=== PATIENT | male | born 1960 | race Caucasian/White ===

== ENCOUNTER 2019-03-21 09:02 | Inpatient (IN) | payer MEDICAID ==
[2019-03-20 11:51] LABS: BASOPHILS # (AUTO) 0.05 x10^3/uL (0-0.1); BASOPHILS % (AUTO) 1 % (0-1); EOSINOPHILS # (AUTO) 0.07 x10^3/uL (0-0.4); EOSINOPHILS % (AUTO) 1 % (1-7); LYMPHOCYTES # (AUTO) 1.69 x10^3/uL (1-3.4); LYMPHOCYTES % (AUTO) 22 % (22-44); MD NO; MEAN CORPUSCULAR HEMOGLOBIN 33.3 pg (27.5-34.5); MEAN CORPUSCULAR HGB CONC 33.5 g/dL (33.2-36.2); MEAN CORPUSCULAR VOLUME 99.4 fL (81-97); MEAN PLATELET VOLUME 8.3 fL (7.4-10.4); MONOCYTES # (AUTO) 0.33 x10^3/uL (0.2-0.8); MONOCYTES % (AUTO) 4 % (2-9); NEUTROPHILS # (AUTO) 5.55 x10^3/uL (1.8-6.8); NEUTROPHILS % (AUTO) 72 % (42-75); PLATELET COUNT 245 x10^3/uL (130-400); RED BLOOD COUNT 4.74 x10^6/uL (4.38-5.82); RED CELL DISTRIBUTION WIDTH 14.3 % (9.4-14.8)
[2019-03-20 12:01] LABS: INTERNATIONAL NORMALIZED RATIO 1.02 (0.93-1.1); PROTHROMBIN TIME 10.7 Seconds (9.6-11.5)
[2019-03-20 12:03] LABS: ALBUMIN 3.9 g/dL (3.4-5.0); ANION GAP 5 mmol/L (5-15); CALCIUM 8.9 mg/dL (8.5-10.1); CHLORIDE 113 mmol/L (98-107)
[2019-03-20 12:07] LABS: ALANINE AMINOTRANSFERASE 24 U/L (12-78); ALKALINE PHOSPHATASE 82 U/L (45-117); BILIRUBIN,TOTAL 0.3 mg/dL (0.2-1.0); CREATININE 0.79 mg/dL (0.7-1.3); TOTAL PROTEIN 6.9 g/dL (6.4-8.2)
[2019-03-20 12:30] LABS: HEMOGLOBIN A1C 5.1 % (4.2-6.3)
[~2019-03-21] VITALS: Ht 182.9 cm; Wt 81.0 kg
[~2019-03-21 09:02] MED LIST: EPINEPHRINE 1 MG/ML, 1ML ONE; KETOROLAC 60 MG/2 ML ONE; MULT1TAB60 PO; ROPIvacaine/PF 0.5%, 30 ML ONE; SODIUM CHLORIDE 0.9% 50 ML ONE; TRANEXAMIC ACID 100 MG/ML, 10ML ONE; VANCOMYCIN 1,000 MG ONE
[2019-03-21] MEDS ORDERED: MIDAZOLAM 1 MG/ML, 2ML ONE (13:36)
[2019-03-21] MEDS ORDERED: FENTANYL PF 250 MCG/5ML ONE (13:36)
[2019-03-21 14:09] VITALS: BP 126/82
[2019-03-21] MEDS ORDERED: LACTATED RINGERS 1,000 ML IV SCH (14:15)
[2019-03-21] MEDS ORDERED: ACETAMINOPHEN 500 MG TABLET PO ONE (14:30)
[2019-03-21] MEDS ORDERED: GABAPENTIN 300 MG CAPSULE PO ONE (14:30)
[2019-03-21] MEDS ORDERED: GABAPENTIN 300 MG CAPSULE ONE (14:35)
[2019-03-21] MEDS ORDERED: ACETAMINOPHEN 500 MG TABLET ONE (14:35)
[2019-03-21] MEDS ORDERED: CEFAZOLIN 1,000 MG ONE (14:45)
[2019-03-21] MEDS ORDERED: ONDANSETRON 2MG/ML, 2ML ONE (15:04)
[2019-03-21] MEDS ORDERED: FENTANYL PF 100 MCG/2ML ONE ×3 (15:05→15:50)
[2019-03-21] MEDS ORDERED: SUCCINYLCHOLINE 20 MG/ML, 10ML ONE (15:18)
[2019-03-21] MEDS ORDERED: PROPOFOL 10 MG/ML, 20ML ONE (15:18)
[2019-03-21] MEDS ORDERED: LIDOCAINE-MPF 2% ,5ML ONE (15:18)
[2019-03-21] MEDS ORDERED: DEXAMETHASONE 4 MG/ML, 1ML ONE ×2 (15:22)
[2019-03-21] MEDS ORDERED: MEPERIDINE/PF 25MG/ML,1ML IVPush PRN (15:30)
[2019-03-21] MEDS ORDERED: ONDANSETRON 2MG/ML, 2ML IV PRN ×2 (15:30→16:00)
[2019-03-21] MEDS ORDERED: EPHEDRINE 50 MG/ML, 1ML IVPush PRN (15:30)
[2019-03-21] MEDS ORDERED: hydrALAzine 20 MG/ML, 1ML IV PRN (15:30)
[2019-03-21] MEDS ORDERED: PROMETHAZINE 25 MG/ML, 1ML IV PRN (15:30)
[2019-03-21] MEDS ORDERED: OXYcodone 5 MG/5 ML ORAL.SOL UDC PO PRN ×2 (15:30→16:00)
[2019-03-21] MEDS ORDERED: HYDROmorphone 2 MG/ML, 1ML IVPush PRN (15:30)
[2019-03-21] MEDS ORDERED: LABETALOL 5MG/ML, 20ML IV PRN (15:30)
[2019-03-21] MEDS ORDERED: HYDROmorphone 1 MG/ML, 1ML VIAL ONE (15:50)
[2019-03-21] MEDS ORDERED: OXYcodone 5 MG/5 ML ORAL.SOL UDC ONE (15:50)
[2019-03-21] MEDS ORDERED: ACETAMINOPHEN 650 MG/20.3 ML UDC PO PRN (16:00)
[2019-03-21] MEDS ORDERED: BISACODYL 10 MG SUPP PR PRN (16:00)
[2019-03-21] MEDS ORDERED: ONDANSETRON 4 MG TABLET PO PRN (16:00)
[2019-03-21] MEDS ORDERED: MAGNESIUM HYDROXIDE 8%, 30ML UDC PO PRN (16:00)
[2019-03-21] MEDS ORDERED: SCOPOLAMINE PATCH, 1.5MG PATCH.TD72 TD ONE (16:00)
[2019-03-21] MEDS ORDERED: SENNA/DOCUSATE TABLET PO PRN (16:00)
[2019-03-21] MEDS ORDERED: DIPHENHYDRAMINE 50 MG CAPSULE PO PRN (16:00)
[2019-03-21] MEDS ORDERED: ZOLPIDEM 5MG TABLET PO PRN (16:00)
[2019-03-21] MEDS ORDERED: HYDROcodone/APAP 5/325 TABLET PO PRN (16:00)
[2019-03-21] MEDS: FENTANYL PF 100 MCG/2ML IV PRN ×2 (16:01→16:11)
[2019-03-21] MEDS: HYDROmorphone 2 MG/ML, 1ML IVPush PRN ×2 (16:01→16:15)
[2019-03-21] MEDS ORDERED: PROMETHAZINE 25 MG/ML, 1ML ONE (16:15)
[2019-03-21] MEDS: NS + 20MEQ KCL 1,000 ML IV SCH (18:20)
[2019-03-21] MEDS: ASPIRIN 81 MG TABLET EC PO SCH (18:20)
[2019-03-21 19:30] VITALS: BP 115/74
[2019-03-21] MEDS: DOCUSATE 100 MG CAPSULE PO SCH (22:04)
[2019-03-21 22:20] VITALS: BP 108/76
[2019-03-21] MEDS: CEFAZOLIN PMX 2GM/50ML 50 ML IVPB SCH (22:38)
[2019-03-22] MEDS: OXYcodone IR 5MG TABLET PO PRN ×2 (05:10→09:26)
[2019-03-22] MEDS ORDERED: DEXAMETHASONE 4 MG/ML, 1ML IVPush SCH (06:00)
[2019-03-22] MEDS: ASPIRIN 81 MG TABLET EC PO SCH (06:30)
[2019-03-22] MEDS: NS + 20MEQ KCL 1,000 ML IV SCH (06:30)
[2019-03-22] MEDS: CEFAZOLIN PMX 2GM/50ML 50 ML IVPB SCH (06:31)
[2019-03-22 07:12] VITALS: BP 131/86
[2019-03-22] MEDS ORDERED: OXYC5TAB3 PO (08:25)
[2019-03-22] MEDS ORDERED: TRAM50TA2 PO (08:26)
[2019-03-22] MEDS ORDERED: MELO7.5T31 PO (08:27)
[2019-03-22] MEDS: DOCUSATE 100 MG CAPSULE PO SCH (09:26)
== END 2019-03-22 10:58 | disposition home or self-care (01) | DRG 470 ==
LOC: ORIP 14:43 → 4NE 16:51 → DCLOUNGE 03-22 10:39
PROVIDERS: ADMIT Orthopaedic Surgery; ATTEND Orthopaedic Surgery
PROC: 0SRB06A Replacement of Left Hip Joint with Oxidized Zirconium on Polyethylene Synthetic Substitute, Uncemented, Open Approach (ICD-10-PCS; principal; 2019-03-21 15:45)
DX: M16.12 Unilateral primary osteoarthritis, left hip (principal); Z82.61 Family history of arthritis
CPT/HCPCS: 36415; 72170; 76000; J3490; 80053; 83036; 85025; 85610; 85730; 87081; 93005; C1713; G0378; J0171; J0690; J1100; J1170; J1885; J2250; J2405; J2550; J2704; J2795; J3010; J3370; J3480; C1776; J0330; J7120